=== PATIENT | male | born 1985 | race Caucasian/White ===

== ENCOUNTER 2017-05-30 08:35 | Outpatient (CLI) | END 2017-05-30 09:05 | LOC: AMBL 08:35 | PROVIDERS: ATTEND Internal Medicine Geriatric Medicine | DX: M25.512 Pain in left shoulder (principal); M54.2 Cervicalgia; M25.521 Pain in right elbow; R10.32 Left lower quadrant pain; V89.2XXA Person injured in unspecified motor-vehicle accident, traffic, initial encounter ==